=== PATIENT | male | born 1955 | race Caucasian/White ===

== ENCOUNTER 2024-04-12 13:18 | Outpatient (RCR) | payer MEDICARE, BC, SELFPAY ==
--- NOTE | 2024-04-12 14:15 | CTCTSUMM_ITS ---
[facility] [address] [place], [place] [address] Treatment Summary Date: 04/12/2024 MR#: [id number] Name: AMAYA MARSH : 1955 Dx: C61 Referring Physician: Molly Angeles MD (A) Diagnosis: [ICD10] C61 Malignant neoplasm of prostate (B) Aim of Treatment: ?? (C) Concomitant Chemotherapy: No (D) Radiation Dates: 01/30/2024 through 03/15/2024 Treatment Prescription CTV VMAT 10MV 6,840 cGy 38 180 cGy Approved (E) All mcdonald were treated using customized MLC Blocks (F) Finding at Discharge: Patient seen for first follow-up on 04/12/2024. Was recovering from the fat igue related side effects of radiation and was generally feeling well. Patient's PSA was less than 0.10 (G) Discharge Instructions and F/U Appt was given: The patient was also advised to continue follow-up with Dr. Angeles and primary care physician: cc: Molly Angeles MD Electronically signed by: Sylvester Barcenas MD, ANI 04/12/2024 2:12 PM
== END 2024-05-04 23:59 | disposition home or self-care (01) ==
LOC: SCTC 13:18
PROVIDERS: PCP Nurse Practitioner Family; Referring Provider Nurse Practitioner Family; Visit Provider Radiology Therapeutic Radiology
DX: C61 Malignant neoplasm of prostate (principal); Z92.3 Personal history of irradiation
CPT/HCPCS: 99212; G0463

== ENCOUNTER 2024-05-16 14:09 | Outpatient (RCR) | payer MEDICARE, BC, SELFPAY | END 2024-06-03 23:59 | disposition home or self-care (01) | LOC: SCTC 14:09 | PROVIDERS: PCP Nurse Practitioner Family; Referring Provider Nurse Practitioner Family; Visit Provider Radiology Therapeutic Radiology | DX: Z51.11 Encounter for antineoplastic chemotherapy (principal); C61 Malignant neoplasm of prostate; Z90.79 Acquired absence of other genital organ(s) | CPT/HCPCS: 96402; J9217 ==

== ENCOUNTER → 2024-07-12 | Outpatient (CLI) | payer MEDICARE, BC, SELFPAY ==
[2024-07-12 13:46] LABS: Basophils % (Auto) 0 % (0-2.5); Eosinophils % (Auto) 0 % (0-10); Hematocrit 47.2 % (41.0-53.0); Hemoglobin 15.9 g/dL (13.5-16.0); Immature Granulocytes % (Auto) 1 % (0-0); Immature Granulocytes Auto 0.04 Thou/mm3 (0.00-0.00); Lymphocytes # (Auto) 0.7 Thou/mm3 (1.0-4.8); Lymphocytes % (Auto) 12 % (10-50); Mean Corpuscular HGB Conc 33.7 g/dl (31.0-37.0); Mean Corpuscular Hemoglobin 30.7 pg (25.0-35.0); Mean Corpuscular Volume 91 fL (80-100); Monocytes # (Auto) 0.4 Thou/mm3 (0.0-0.8); Monocytes % (Auto) 6 % (0-12); Neutrophils # (Auto) 4.9 Thou/mm3 (1.8-7.7); Neutrophils % (Auto) 81 % (37-80); Nucleated Red Blood Cell % 0 /100 WBC (0); Platelet Count 208 Thou/mm3 (140-440); RDW Standard Deviation 41.7 fL (35.1-43.9); Red Blood Count 5.18 Miln/mm3 (4.50-5.90)
[2024-07-12 13:59] LABS: Prostate Specific Antigen < 0.10 ng/mL (0-4.00)
[2024-07-12 14:10] LABS: Alanine Aminotransferase 135 U/L (10-49); Albumin, Serum 4.9 gm/dL (3.4-4.8); Albumin/Globulin Ratio 2.1 (1.2-2.2); Alkaline Phosphatase 82 U/L (46-116); Anion Gap 8 (7-16); Aspartate Amino Transferase 37 U/L (0-34); BUN/Creatinine Ratio 25 Ratio (12-20); Bilirubin,Total 0.5 mg/dL (0.3-1.2); Blood Urea Nitrogen 25 mg/dL (9-23); Calcium 9.7 mg/dL (8.3-10.6); Calcium (Corrected) 9.7 mg/dL (8.5-10.1); Carbon Dioxide 30.3 mMol/L (20.0-31.0); Chloride 102 mMol/L (98-107); Globulin 2.3 gm/dL (2.3-3.5); Glucose 136 mg/dL (74-106); Osmolality,Calculated 285 (275-295); Potassium 4.6 mMol/L (3.4-5.1); Sodium 140 mMol/L (136-145); Total Protein 7.2 gm/dL (5.7-8.2); eGFR > 60 See Note
== END | disposition home or self-care (01) ==
LOC: SCTO 11:25
PROVIDERS: PCP Family Medicine; Referring Provider Radiology Therapeutic Radiology; Visit Provider Radiology Therapeutic Radiology
DX: C61 Malignant neoplasm of prostate (principal)
CPT/HCPCS: 36415; 80053; 84153; 85025

== ENCOUNTER 2024-07-13 07:49 | Outpatient (RCR) | payer MEDICARE, BC, SELFPAY ==
--- NOTE | 2024-07-13 08:38 | CTCFLWUP_ITS ---
[facility] [address] [place], [place] [address] FOLLOW-UP NOTE Date: 07/13/2024 MR#: [id number] Name: AMAYA MARSH : 1955 Dx: C61 Malignant neoplasm of prostate Identification. History of prostate CA status post prostatectomy 01/27/2022 Rising PSA along with high risk features received postoperation therapy 6840 cGy completed 03/15/2024. Got concomitant Lupron injections thus far 3 the last dose 05/16/2024. Most recent labs 07/12/2024 shows PSA to be less than 0.10. Concerned about left shoulder atrophy after 2 injections given at that site. The left scapularis mus cipriano appears to be centered compared to the right. Picture taken. MRI has been ordered by primary ca re physician. Having some frequency symptoms. Assessment. 1.Prostate CA prostatectomy 01/27/2022. 2. Postop XRT for high risk features and rising PSA 6840 cGy completed 03/15/2024. 3 Continue with Lupron injections most recent PSA less than 0.10 07 12 24.. 4. MRI of left shoulder pending. 5. Return to clinic 3 months. Electronically signed by: Sylvester Barcenas M.D. 07/13/2024 8:35 AM
== END 2024-08-04 23:59 | disposition home or self-care (01) ==
LOC: SCTC 07:49
PROVIDERS: PCP Nurse Practitioner Family; Referring Provider Nurse Practitioner Family; Visit Provider Radiology Therapeutic Radiology
DX: C61 Malignant neoplasm of prostate (principal); Z90.79 Acquired absence of other genital organ(s); Z92.3 Personal history of irradiation; Z79.818 Long term (current) use of other agents affecting estrogen receptors and estrogen levels
CPT/HCPCS: 99213; G0463

== ENCOUNTER 2024-08-16 13:44 | Outpatient (RCR) | payer MEDICARE, BC, SELFPAY ==
--- NOTE | 2024-08-15 16:08 | CTCFLWUP_ITS ---
[facility] [address] [place], [place] [address] FOLLOW-UP NOTE Date: 08/15/2024 MR#: [id number] Name: AMAYA MARSH : 1955 Dx: C61 Malignant neoplasm of prostate Patient would like to stop the injections after the next schedule I tomorrow. Does not like the side effects and his PSA i on 07/12/2024 was less than 0.1 states that he like to avoid injection in the left shoulder which caused some weakness of the left deltoid area still present. This was discussed with the nurses as well. Will check his left shoulder consider physical therapy see him in 6 months with prior PSA. Electronically signed by: Sylvester Barcenas M.D. 08/15/2024 4:06 PM
== END 2024-09-01 23:59 | disposition home or self-care (01) ==
LOC: SCTC 13:44
PROVIDERS: PCP Family Medicine; Referring Provider Family Medicine; Visit Provider Radiology Therapeutic Radiology
DX: Z51.11 Encounter for antineoplastic chemotherapy (principal); C61 Malignant neoplasm of prostate
CPT/HCPCS: 96402; 99212; J9217; G0463

== ENCOUNTER → 2025-02-09 | Outpatient (CLI) | payer MEDICARE, BC, SELFPAY ==
--- NOTE | 2025-02-09 15:28 | XR_ITS ---
Examination: PA lateral chest 2 views TECHNIQUE: Upright PA lateral chest 2 views Date and time: February 09, 2025, 1558 hours Comparison January 02, 2022 INDICATIONS: Difficulty breathing beginning 3 months ago. FINDINGS: CABG. Normal heart size No pneumonia or pulmonary edema. Mild accentuation basilar bronchovascular markings IMPRESSION: Mild basilar bronchitis pattern
[2025-02-09 15:56] LABS: Collection Type, Urine Clean Catch; Squamous Epithelial Cell,Urine 0 /hpf (0-5)
[2025-02-09 16:28] LABS: Basophils # (Auto) 0.0 Thou/mm3 (0.0-0.2); Basophils % (Auto) 1 % (0-2.5); Eosinophils # (Auto) 0.2 Thou/mm3 (0.0-0.5); Eosinophils % (Auto) 3 % (0-10); Hematocrit 43.9 % (41.0-53.0); Hemoglobin 14.9 g/dL (13.5-16.0); Immature Granulocytes Auto 0.02 Thou/mm3 (0.00-0.00); Lymphocytes # (Auto) 1.5 Thou/mm3 (1.0-4.8); Lymphocytes % (Auto) 26 % (10-50); Mean Corpuscular HGB Conc 33.9 g/dl (31.0-37.0); Mean Corpuscular Hemoglobin 30.8 pg (25.0-35.0); Mean Corpuscular Volume 91 fL (80-100); Monocytes # (Auto) 0.9 Thou/mm3 (0.0-0.8); Monocytes % (Auto) 15 % (0-12); Neutrophils # (Auto) 3.2 Thou/mm3 (1.8-7.7); Neutrophils % (Auto) 55 % (37-80); Nucleated Red Blood Cell # 0.00 Thou/mm3 (0.00-0.00); Nucleated Red Blood Cell % 0 /100 WBC (0); Platelet Count 223 Thou/mm3 (140-440); RDW Standard Deviation 41.7 fL (35.1-43.9); Red Blood Count 4.83 Miln/mm3 (4.50-5.90); White Blood Count 5.8 Thou/mm3 (3.8-10.6)
[2025-02-09 16:32] LABS: Bilirubin,Urine Negative (Negative); Blood,Urine Negative (Negative); Clarity,Urine Clear (Clear/Hazy); Color,Urine Yellow (Lt Yel-Yel); Culture Indicated,Urine Not Indicated; Glucose, Urine Negative (Negative); Ketones,Urine Negative (Negative); Leukocyte Esterase,Urine Negative (Negative); Nitrite,Urine Negative (Negative); PH,Urine 5.5 (5.0-7.0); Protein,Urine Negative (Neg - Trace); RBC,Urine 2 /hpf (0-3); Specific Gravity,Urine 1.026 (1.001-1.035); Urobilinogen,Urine Negative mg/dL (0.0-1.0); WBC,Urine 1 /hpf (0-5)
[2025-02-09 16:34] LABS: Prostate Specific Antigen < 0.10 ng/mL (0-4.00)
[2025-02-09 16:37] LABS: Alanine Aminotransferase 53 U/L (10-49); Albumin, Serum 4.7 gm/dL (3.4-4.8); Albumin/Globulin Ratio 2.0 (1.2-2.2); Alkaline Phosphatase 62 U/L (46-116); Anion Gap 11 (7-16); Aspartate Amino Transferase 32 U/L (0-34); BUN/Creatinine Ratio 21 Ratio (12-20); Bilirubin,Total 0.5 mg/dL (0.3-1.2); Blood Urea Nitrogen 23 mg/dL (9-23); Calcium 9.6 mg/dL (8.3-10.6); Calcium (Corrected) 9.6 mg/dL (8.5-10.1); Carbon Dioxide 28.9 mMol/L (20.0-31.0); Chloride 102 mMol/L (98-107); Creatinine (Component) 1.1 mg/dL (0.6-1.3); Globulin 2.4 gm/dL (2.3-3.5); Glucose 91 mg/dL (74-106); Osmolality,Calculated 286 (275-295); Potassium 3.8 mMol/L (3.4-5.1); Sodium 142 mMol/L (136-145); Thyroid Stimulating Hormone 3.44 uIU/mL (0.55-4.78); Total Protein 7.1 gm/dL (5.7-8.2); eGFR > 60 See Note
[2025-02-09 16:40] LABS: Vitamin B12 665 pg/mL (211-911); Vitamin D 25 Hydroxy Total 38.8 ng/mL (7.3-40.2)
[2025-02-10 15:07] LABS: Cocci Serology, IgM Negative (Negative)
[2025-02-12 14:45] LABS: Cocci Serology, IgG Negative (Negative)
== END | disposition home or self-care (01) ==
LOC: COPL 14:58
PROVIDERS: Radiology Therapeutic Radiology; PCP Nurse Practitioner Family; Referring Provider Nurse Practitioner Family; Visit Provider Radiology Diagnostic Radiology
DX: R06.00 Dyspnea, unspecified (principal); C61 Malignant neoplasm of prostate; I10 Essential (primary) hypertension
CPT/HCPCS: 36415; 71046; 80053; 81001; 82306; 82607; 84153; 84443; 85025; 86331; 86635

== ENCOUNTER 2025-02-13 14:49 | Outpatient (RCR) | payer MEDICARE, BC, SELFPAY ==
--- NOTE | 2025-02-13 15:51 | CTCFLWUP_ITS ---
[facility] [address] [place], [place] [address] FOLLOW-UP NOTE Date: 02/13/2025 MR#: [id number] Name: AMAYA MARSH : 1955 Dx: C61 Malignant neoplasm of prostate Identification. Patient with history of prostate cancer prostatectomy 01/27/2022 [id number]. Rising PSA to 0.30 on 08/30/2022. Had postop XRT 6840 cGy completed 03/15/2024. Received 4 injections of Lupron lasting for 1 year. His most recent PSA 02/09/2025 was less than 0.10. States that he still has some hot flashes and is also having frequency and slow stream urine.. Elected to put patient on Ditropan 5 mg twice daily for 2-week which may help both problems and told him to call me around that time.. Otherwise see me in 6 months with a PSA just prior. Electronically signed by: Sylvester Barcenas M.D. 02/13/2025 3:49 PM
== END 2025-03-04 23:59 | disposition home or self-care (01) ==
LOC: SCTC 14:49
PROVIDERS: PCP Nurse Practitioner Family; Referring Provider Nurse Practitioner Family; Visit Provider Radiology Therapeutic Radiology
DX: C61 Malignant neoplasm of prostate (principal); Z90.79 Acquired absence of other genital organ(s); Z92.3 Personal history of irradiation
CPT/HCPCS: 99213; G0463